=== PATIENT | female | born 1990 | race Caucasian/White ===

== ENCOUNTER 2018-04-23 17:24 | Emergency (ER) | payer SELFPAY ==
[2018-04-23 18:17] LABS: APPEARANCE HAZY (CLEAR); BILIRUBIN NEGATIVE (NEGATIVE); COLOR YELLOW (YELLOW); GLUCOSE NEGATIVE (NEGATIVE); KETONE NEGATIVE (NEGATIVE); NITRITE NEGATIVE (NEGATIVE); PROTEIN 1+ mg/dL (NEGATIVE); SPECIFIC GRAVITY 1.015 (1.005-1.020); UROBILINOGEN NORMAL (NORMAL)
[2018-04-23 18:18] LABS: BACTERIA MANY /hpf (NONE SEEN); WHITE CELLS - URINE >50 /hpf (0-5)
[2018-04-23 18:22] LABS: BASOPHILS 0.1 % (0-2); EOSINOPHILS 2.1 % (0-7); HEMATOCRIT 43.9 % (36.0-48.0); HEMOGLOBIN 14.9 g/dL (12-16); IMMATURE GRANULOCYTES 0.3 % (0-5); LYMPHOCYTES 18.9 % (15-50); MCH 29.7 pg (26.0-34.0); MCHC 33.9 g/dL (31.0-37.0); MCV 87.6 fL (80.0-100.0); MEAN PLATELET VOLUME 9.5 fL (7.4-10.4); MONOCYTES 7.2 % (2-11); NEUTROPHILS 71.4 % (40-80); PLATELET COUNT 268 10x3/uL (130-400); RBC 5.01 10x6/uL (4.00-5.40); RDW 12.1 % (11.5-14.5); WBC 15.3 10x3/uL (4.8-10.8)
[2018-04-23 18:28] LABS: ALBUMIN 3.8 g/dL (3.4-5.0); ANION GAP 11.8 mmol/L (8-16); BILIRUBIN - TOTAL 0.35 mg/dL (0.2-1.3); CALCIUM 9.5 mg/dL (8.5-10.1); CARBON DIOXIDE 31.5 mmol/L (21.0-32.0); POTASSIUM - SERUM 4.3 mmol/L (3.5-5.1); PROTEIN - SERUM 8.3 g/dL (6.4-8.2)
== END 2018-04-23 21:08 | disposition home or self-care (01) ==
LOC: D.ER 17:24
PROVIDERS: Family Medicine
DX: N39.0 Urinary tract infection, site not specified (principal); N76.0 Acute vaginitis